=== PATIENT | female | born 1975 | race American Indian/Alaskan Native ===

== ENCOUNTER 2017-02-23 11:57 | Emergency (ER) | payer SELFPAY ==
--- NOTE | 2017-02-23 14:56 | Emergency Department Report ---
ED Female HPI - General Chief complaint: Vaginal Bleeding Stated complaint: VAGINAL BLEEDING Time Seen by Provider: 02/23/17 14:04 Source: patient Mode of arrival: Ambulatory Limitations: No Limitations - History of Present Illness Initial comments: This is a 41-year-old female nontoxic, well nourished in appearance, no acute signs of distress presents to the ED with c/o of abnormal menstrual cycle. Patient stated that her menstrual cycles are heavy and abnormal x1 year. Patient stated she just started her menstrual cycle 2 days ago and it is heavier than normal. Patient denies follow-up with a primary care doctor or [employer]. Patient denies any abdominal pain, fever, chills, nausea, vomiting, chest pain shortness of breath. Patient denies any dizziness or syncope. Patient denies any allergies or past medical history. MD Complaint: vaginal bleeding -: Gradual, year(s) Severity scale (0 -10): 0 Improves with: none Worsens with: none Are you Now?: No Last Menstrual Period: 02/21/17 EDC: 11/28/17 Associated Symptoms: vaginal bleeding. denies: vaginal discharge, abdominal pain, nausea/vomiting, fever/chills, headaches, loss of appetite, dysuria, hematuria, rash, seizure, shortness of breath, syncope, weakness ED Review of Systems ROS: Stated complaint: VAGINAL BLEEDING Other details as noted in HPI Constitutional: denies: chills, fever Eyes: denies: eye pain, eye discharge, vision change ENT: denies: ear pain, throat pain Respiratory: denies: cough, shortness of breath, wheezing Cardiovascular: denies: chest pain, palpitations Endocrine: no symptoms reported Gastrointestinal: denies: abdominal pain, nausea, diarrhea Genitourinary: abnormal menses. denies: urgency, dysuria, discharge Musculoskeletal: denies: back pain, joint swelling, arthralgia Skin: denies: rash, lesions Neurological: denies: headache, weakness, paresthesias Psychiatric: denies: anxiety, depression Hematological/Lymphatic: denies: easy bleeding, easy bruising ED Past Medical Hx - Past Medical History Previous Medical History?: No - Surgical History Past Surgical History?: No - Social History Smoking Status: Never Smoker Substance Use Type: Non Opiate Pain, Other ED Physical Exam - General Limitations: No Limitations General appearance: alert, in no apparent distress - Head Head exam: Present: atraumatic, normocephalic, normal inspection - Eye Eye exam: Present: normal appearance, PERRL, EOMI. Absent: scleral icterus, conjunctival injection, nystagmus, periorbital swelling, periorbital tenderness Pupils: Present: normal accommodation - ENT ENT exam: Present: normal exam, normal orophraynx, mucous membranes moist, TM's normal bilaterally, normal external ear exam - Neck Neck exam: Present: normal inspection, full ROM. Absent: tenderness, meningismus, lymphadenopathy, thyromegaly - Respiratory Respiratory exam: Present: normal lung sounds bilaterally. Absent: respiratory distress, wheezes, rales, rhonchi, stridor, chest wall tenderness, accessory muscle use, decreased breath sounds, prolonged expiratory - Cardiovascular Cardiovascular Exam: Present: regular rate, normal rhythm, normal heart sounds. Absent: bradycardia, tachycardia, irregular rhythm, systolic murmur, diastolic murmur, rubs, gallop - GI/Abdominal GI/Abdominal exam: Present: soft, normal bowel sounds. Absent: distended, tenderness, guarding, rebound, rigid - Rectal Rectal exam: Present: deferred - Extremities Exam Extremities exam: Present: normal inspection, full ROM, normal capillary refill. Absent: tenderness, pedal edema, joint swelling, calf tenderness - Back Exam Back exam: Present: normal inspection, full ROM. Absent: tenderness, CVA tenderness (R), CVA tenderness (L), muscle spasm, paraspinal tenderness, vertebral tenderness, rash noted - Neurological Exam Neurological exam: Present: alert, oriented X3, CN II-XII intact, normal gait, reflexes normal - Psychiatric Psychiatric exam: Present: normal affect, normal mood - Skin Skin exam: Present: warm, dry, intact, normal color. Absent: rash ED Course Vital Signs 02/23/17 02/23/17 12:01 16:58 Temperature 97.8 F 98.3 F Pulse Rate 77 72 Respiratory 18 16 Rate Blood Pressure 148/91 125/68 O2 Sat by Pulse 98 100 Oximetry - Reevaluation(s) Reevaluation #1: 02/23/17 14:58 Patient is speaking in full sentences with no signs of distress noted. ED Medical Decision Making - Lab Data Result diagrams: 02/23/17 14:31 02/23/17 14:31 - Medical Decision Making This is a 41-year-old female that presents with abnormal menstrual cycle and possible fibroids. PAtient is stable and was examined by me. CBC, BMP, UA, Preg obtained within possbile fibroids. Vital signs are stable. US pelvis obtained and dictated by radiologist with normal exam. Patient is notified of US results with no questions noted. Patient was instructed Follow-up with a primary care doctor in 3-5 days or if symptoms worsen and continue return to emergency room as soon as possible. At time time of discharge, the patient does not seem toxic or ill in appearance. No acute signs of distress noted. Patient agrees to discharge treatment plan of care. No further questions noted by the patient. Critical care attestation.: If time is entered above; I have spent that time in minutes in the direct care of this critically ill patient, excluding procedure time. ED Disposition Clinical Impression: Abnormal menstrual cycle Fibroids Qualifiers: Uterine leiomyoma location: unspecified location Qualified Code(s): D25.9 - Leiomyoma of uterus, unspecified Disposition: DC- TO HOME OR SELFCARE Is pt being admited?: No Does the pt Need Aspirin: No Condition: Stable Instructions: Menstruation (ED), Uterine Fibroids (ED) Additional Instructions: Follow-up with a primary care doctor in 3-5 days or if symptoms worsen and continue return to emergency room as soon as possible. Referrals: SANDIE AGUILAR MD [Primary Care Provider] - 3-5 Days UCHE VIDALES MD [Staff Physician] - 3-5 Days FER SHAFER MD [Staff Physician] - 3-5 Days [facility] [Outside] - 3-5 Days [facility] [Outside] - 3-5 Days Forms: Work/School Release Form(ED)
[2017-02-23 14:59] LABS: Mucus,Urine FEW /HPF
[2017-02-23 15:03] LABS: Basophils % (Auto) 0.5 % (0.0-1.8); Eosinophils % (Auto) 4.3 % (0.0-4.3); Hematocrit 38.9 % (30.3-42.9); Hemoglobin 13.3 gm/dl (10.1-14.3); Mean Corpuscular HGB Conc 34 % (30-34); Mean Corpuscular Hemoglobin 27 pg (28-32); Mean Corpuscular Volume 79 fl (79-97); Platelet Count 241 K/mm3 (140-440); Red Blood Count 4.89 M/mm3 (3.65-5.03); Red Cell Distribution Width 14.8 % (13.2-15.2); White Blood Count 5.6 K/mm3 (4.5-11.0)
[2017-02-23 15:05] LABS: Bilirubin,Urine NEG (Negative)
[2017-02-23 15:06] LABS: Anion Gap 17 mmol/L; BUN/Creatinine Ratio 15; Blood Urea Nitrogen 12 mg/dL (7-17); Calcium 8.9 mg/dL (8.4-10.2); Carbon Dioxide 26 mmol/L (22-30); Chloride 100.4 mmol/L (98-107); Glucose 82 mg/dL (65-100); Potassium 4.2 mmol/L (3.6-5.0); Sodium 139 mmol/L (137-145)
[2017-02-23 15:06] LABS: Blood,Urine NEG (Negative); Ketones,Urine TR mg/dL (Negative); Leukocyte Esterase,Urine NEG (Negative); Nitrite,Urine NEG (Negative); Protein,Urine <15 mg/dL mg/dL (Negative); Urobilinogen,Urine < 2.0 mg/dL (<2.0)
--- NOTE | 2017-02-23 16:51 | Ultrasound Report ---
FINAL REPORT EXAM: US PELVIC COMPLETE HISTORY: vaginal bleeding TECHNIQUE: Transabdominal and transvaginal pelvic ultrasound. PRIORS: None currently available. FINDINGS: Uterus: 9.7 x 5.3 x 7.0 cm. Anteverted. Slightly heterogeneous. Anterior fibroid measures 1.3 cm. Nabothian cysts identified. Endometrium: 17 mm. Focal thickening at the fundus with a heterogeneous with internal flow. Findings may represent thickening or a endometrial mass or submucosal fibroid measuring 2.4 x 1.5 x 1.8 cm. Right ovary: 3.0 x 2.3 x 2.6 cm. Within normal limits. Flow is present. Left ovary: 2.3 x 3.2 x 2.2 cm. Within normal limits. Flow is present. No adnexal lesions. No significant free fluid. IMPRESSION: Focal thickening of the endometrium at the fundus. Findings could be related to a submucosal fibroid or endometrial mass. Further workup recommended. Heterogeneous uterus with anterior body fibroid.
--- NOTE | 2017-02-23 16:51 | Ultrasound Report ---
FINAL REPORT EXAM: US TRANSVAGINAL HISTORY: vag bleed TECHNIQUE: Transabdominal and transvaginal pelvic ultrasound. PRIORS: None currently available. FINDINGS: Uterus: 9.7 x 5.3 x 7.0 cm. Anteverted. Slightly heterogeneous. Anterior fibroid measures 1.3 cm. Nabothian cysts identified. Endometrium: 17 mm. Focal thickening at the fundus with a heterogeneous with internal flow. Findings may represent thickening or a endometrial mass or submucosal fibroid measuring 2.4 x 1.5 x 1.8 cm. Right ovary: 3.0 x 2.3 x 2.6 cm. Within normal limits. Flow is present. Left ovary: 2.3 x 3.2 x 2.2 cm. Within normal limits. Flow is present. No adnexal lesions. No significant free fluid. IMPRESSION: Focal thickening of the endometrium at the fundus. Findings could be related to a submucosal fibroid or endometrial mass. Further workup recommended. Heterogeneous uterus with anterior body fibroid.
[2017-02-23 17:06] VITALS: BP 125/68
== END 2017-02-23 17:24 | disposition home or self-care (01) ==
LOC: ED 11:57
DX: D25.9 Leiomyoma of uterus, unspecified (principal)
CPT/HCPCS: 36415; 76830; 76856; 80048; 81001; 84703; 85025; 99284